=== PATIENT | female | born 1980 | race African-American/Black ===

== ENCOUNTER 2018-09-21 19:16 | Emergency (ER) | payer OTHER ==
[~2018-09-21] VITALS: Ht 170.2 cm; Wt 68.0 kg
[2018-09-21 19:18] VITALS: BP 148/84
[2018-09-21] MEDS ORDERED: NORCO 5-325 TA1 EAC1 PO (20:49)
[2018-09-21] MEDS ORDERED: BACTRIM DS TAB1 EACH PO (20:49)
== END 2018-09-21 21:45 | disposition home or self-care (01) ==
LOC: ER 19:16
DX: T23.501A Corrosion of first degree of right hand, unspecified site, initial encounter (principal); L73.2 Hidradenitis suppurativa; Z87.442 Personal history of urinary calculi; Z98.51 Tubal ligation status; V49.88XA Car occupant (driver) (passenger) injured in other specified transport accidents, initial encounter; Y93.89 Activity, other specified; Y92.413 State road as the place of occurrence of the external cause; Y99.9 Unspecified external cause status

== ENCOUNTER 2019-07-25 11:39 | Emergency (ER) | payer OTHER ==
[~2019-07-25] VITALS: Ht 175.3 cm; Wt 81.7 kg
[~2019-07-25 11:39] MED LIST: BACTRIM DS TAB1 EACH PO; NORCO 5-325 TA1 EAC1 PO
[2019-07-25] MEDS ORDERED: PREDNISONE 20 M20 MG PO (12:28)
[2019-07-25] MEDS ORDERED: ZYRTEC10 MG PO (12:28)
[2019-07-25 12:43] VITALS: BP 123/74
== END 2019-07-25 12:44 | disposition home or self-care (01) ==
LOC: ER 11:39
DX: S40.861A Insect bite (nonvenomous) of right upper arm, initial encounter (principal); Z87.442 Personal history of urinary calculi; Z98.51 Tubal ligation status; W57.XXXA Bitten or stung by nonvenomous insect and other nonvenomous arthropods, initial encounter; Y93.89 Activity, other specified; Y92.89 Other specified places as the place of occurrence of the external cause; Y99.9 Unspecified external cause status